=== PATIENT | female | born 1975 | race Caucasian/White ===

== ENCOUNTER 2017-01-21 15:43 | Emergency (ER) | payer OTHER, BC ==
[~2017-01-21] VITALS: Ht 172.7 cm; Wt 95.4 kg
[2017-01-21] MEDS ORDERED: ZOFRAN ODT4 MG PO (17:29)
[2017-01-21] MEDS ORDERED: VALIUM5 MG PO (17:29)
[2017-01-21 19:06] VITALS: BP 135/89
== END 2017-01-21 19:07 | disposition home or self-care (01) ==
LOC: EME 15:43
DX: S09.90XA Unspecified injury of head, initial encounter (principal); S06.0X0A Concussion without loss of consciousness, initial encounter; S16.1XXA Strain of muscle, fascia and tendon at neck level, initial encounter; S39.012A Strain of muscle, fascia and tendon of lower back, initial encounter; S40.022A Contusion of left upper arm, initial encounter; V54.5XXA Driver of pick-up truck or van injured in collision with heavy transport vehicle or bus in traffic accident, initial encounter; S40.812A Abrasion of left upper arm, initial encounter; M79.7 Fibromyalgia
CPT/HCPCS: 72125; 72131; 73080; 99281; 99283; J3010